=== PATIENT | female | born 1960 | race Caucasian/White ===

== ENCOUNTER 2021-02-05 16:41 | Outpatient (CLI) | payer OTHER, SELFPAY | END 2021-02-05 16:42 | disposition home or self-care (01) | LOC: ANHCOVIDVC 16:42 | PROVIDERS: PCP Orthopaedic Surgery | DX: Z23 Encounter for immunization (principal) | CPT/HCPCS: 0001A; 91300 ==

== ENCOUNTER 2021-02-26 16:45 | Outpatient (CLI) | payer OTHER, SELFPAY | END 2021-02-26 16:46 | disposition home or self-care (01) | LOC: ANHCOVIDVC 16:45 | PROVIDERS: PCP Orthopaedic Surgery | DX: Z23 Encounter for immunization (principal) | CPT/HCPCS: 0002A; 91300 ==